=== PATIENT | female | born 1960 | race Caucasian/White ===

== ENCOUNTER 2017-07-31 10:30 | Outpatient (RCR) | payer OTHER, SELFPAY ==
--- NOTE | 2017-04-24 15:28 | HP.PTEVAL_ITS ---
Patient's Visit Information LUI REN is a 56 year old F referred to Physical Therapy by DO PEGGY Salcedo with a diagnosis of . Date of Evaluation: 04/24/17 Physical Therapist: Malik Lee - Visit Plan Frequency: 2-3x /Week Duration: 2 Months Plan: Continue with hip ROM, LE strengthening, and balance exercises. Progress gait to no assistive device. Follow protocol in chart for pincer surgery. - Subjective Subjective: Pt. states that she has been having right hip pain for about a year in a half with no specific injury that she can remember. Pt. PLOF includes no right hip pain in the past before this. Pt. denies any back pain. Pt. had x-ray and MRI which showed the pincer lesion. Pt. had right hip arthroscopic surgery for pincer resection on 04/08/17. Pt. is currently ambulating with single crutch and is WBAT. Pt. denies any numbness or tingling in her right leg. Pt. has difficulty with walking, standing long periods of time, sitting longer than 30 minutes, ascending/descending stairs, squatting, kneeling, sleeping on right side, driving, playing volleyball, walking on uneven ground, housework, yard work, and work. Pt. works at the [employer] in the kitchen. Pt. goal with physical therapy is to be able to play volleyball again. Pt. has had previous physical therapy prior to surgery which did not help. Pt. rates right hip pain at 5/10 currently, at worst 7/10, at best 2/10 and describes the pain as dull to throbbing. Pt. is currently taking Tramadol for pain. Pt. PMH includes smokes about 5 cigarettes a day for 30 years, left ankle surgery, tubes tied. Pt. lives with her in a one story house with basement and one step to enter with no handrail. Pt. hobbies include playing volleyball and gardening. - Objective Posture- Good standing posture. Palpation- Mild tenderness on outside of right hip. Incision- Two incisions on lateral right hip. Lumbar AROM- WNL for all motions. Right knee AROM flexion 138, extension 0. Left knee AROM flexion 135 , extension 0. PROM right and left hip- WNL bilaterally. AROM right hip flexion 110, abduction 24, adduction 30, ext- NT. Right hip strength flexion 4+ /5, abduction 4+/5, adduction 4+/5, extension- NT, knee flexion 5/5, knee extension 5/5, ankle DF 5/5, PF 5/5. Left hip strength flexion 5/5, abduction 5 /5, adduction 5/5, extension 5/5, knee flexion 5/5, knee extension 5/5, ankle DF 5/5, PF 5/5. Sensation- WNL bilaterally. Tandem stance on right 30 secs, left 30 secs. SLS on right 30 secs, left 30 secs. Gait- Pt. ambulates with single crutch and slight lateral shift to left. Stairs- Pt. ascends/descends stairs with step to gait pattern and unilateral handrail. - Goals Goal 1:: Pt. will be independent with home exercise program. Goal Time Frame: 2 Weeks Goal 2:: Pt. will be able to ambulate with no assistive device or gait deviations. Goal Time Frame: 2 Weeks Goal 3:: Pt. will improve right LE strength to 5/5 for all motions in order to be able to return to work. Goal Time Frame: 6-8 Weeks Goal 4:: Pt. will be able to ascend/descend stairs with alternating step pattern and no handrail. Goal Time Frame: 6-8 Weeks Goal 5:: Pt. will be able to stand/walk for at least 2 hours with no right hip pain. Goal Time Frame: 6-8 Weeks Goal 6:: Pt. will improve LEFS > 40/80 in order to improve mobility and ADL's. Goal Time Frame: 6-8 Weeks - Rehabilitation Potential Rehabilitation Potential: Excellent - Anticipated Interventions Thank you for the opportunity to evaluate your patient. For Medicare and Medicare HMO plans, please review the plan of care and approve it. It will need to be FAXED BACK to us at [phone] for Medicare purposes. Please let me know if there are questions or concerns regarding this plan of care. Physician Signature: Date:
--- NOTE | 2017-04-24 18:13 | HP.PTEVAL ---
Patient's Visit Information LUI REN is a 56 year old F referred to Physical Therapy by DO PEGGY Salcedo with a diagnosis of . Date of Evaluation: 04/24/17 Physical Therapist: Malik Lee - Visit Plan Frequency: 2-3x /Week Duration: 2 Months Plan: Continue with hip ROM, LE strengthening, and balance exercises. Progress gait to no assistive device. Follow protocol in chart for pincer surgery. - Subjective Subjective: Pt. states that she has been having right hip pain for about a year in a half with no specific injury that she can remember. Pt. PLOF includes no right hip pain in the past before this. Pt. denies any back pain. Pt. had x-ray and MRI which showed the pincer lesion. Pt. had right hip arthroscopic surgery for pincer resection on 04/08/17. Pt. is currently ambulating with single crutch and is WBAT. Pt. denies any numbness or tingling in her right leg. Pt. has difficulty with walking, standing long periods of time, sitting longer than 30 minutes, ascending/descending stairs, squatting, kneeling, sleeping on right side, driving, playing volleyball, walking on uneven ground, housework, yard work, and work. Pt. works at the [employer] in the kitchen. Pt. goal with physical therapy is to be able to play volleyball again. Pt. has had previous physical therapy prior to surgery which did not help. Pt. rates right hip pain at 5/10 currently, at worst 7/10, at best 2/10 and describes the pain as dull to throbbing. Pt. is currently taking Tramadol for pain. Pt. PMH includes smokes about 5 cigarettes a day for 30 years, left ankle surgery, tubes tied. Pt. lives with her in a one story house with basement and one step to enter with no handrail. Pt. hobbies include playing volleyball and gardening. - Objective Posture- Good standing posture. Palpation- Mild tenderness on outside of right hip. Incision- Two incisions on lateral right hip. Lumbar AROM- WNL for all motions. Right knee AROM flexion 138, extension 0. Left knee AROM flexion 135, extension 0. PROM right and left hip- WNL bilaterally. AROM right hip flexion 110, abduction 24, adduction 30, ext- NT. Right hip strength flexion 4+/5, abduction 4+/5, adduction 4+/5, extension- NT, knee flexion 5/5, knee extension 5/5, ankle DF 5/5, PF 5/5. Left hip strength flexion 5/5, abduction 5/5, adduction 5/5, extension 5/5, knee flexion 5/5, knee extension 5/5, ankle DF 5/5, PF 5/5. Sensation- WNL bilaterally. Tandem stance on right 30 secs, left 30 secs. SLS on right 30 secs, left 30 secs. Gait- Pt. ambulates with single crutch and slight lateral shift to left. Stairs- Pt. ascends/descends stairs with step to gait pattern and unilateral handrail. - Goals Goal 1:: Pt. will be independent with home exercise program. Goal Time Frame: 2 Weeks Goal 2:: Pt. will be able to ambulate with no assistive device or gait deviations. Goal Time Frame: 2 Weeks Goal 3:: Pt. will improve right LE strength to 5/5 for all motions in order to be able to return to work. Goal Time Frame: 6-8 Weeks Goal 4:: Pt. will be able to ascend/descend stairs with alternating step pattern and no handrail. Goal Time Frame: 6-8 Weeks Goal 5:: Pt. will be able to stand/walk for at least 2 hours with no right hip pain. Goal Time Frame: 6-8 Weeks Goal 6:: Pt. will improve LEFS > 40/80 in order to improve mobility and ADL's. Goal Time Frame: 6-8 Weeks - Rehabilitation Potential Physical Therapy Diagnosis: Pt. is a 56 y.o. female post right hip pincer resection surgery. Pt. is currently ambulating with single crutch. Pt. impairments include pain, decreased ROM, and strength. Pt. functional limitations include difficulty with standing, sitting, ascending/descending stairs, squatting, sleeping, housework, and work activity. Pt. was educated on diagnosis, prognosis, and home exercise program. Pt. will benefit from skilled physical therapy to address goals for therapy and improve mobility. Rehabilitation Potential: Excellent - Anticipated Interventions Thank you for the opportunity to evaluate your patient. For Medicare and Medicare HMO plans, please review the plan of care and approve it. It will need to be FAXED BACK to us at [phone] for Medicare purposes. Please let me know if there are questions or concerns regarding this plan of care. Physician Signature: Date:
--- NOTE | 2017-04-24 18:17 | HP.PTEVAL_ITS ---
Patient's Visit Information LUI REN is a 56 year old F referred to Physical Therapy by DO PEGGY Salcedo with a diagnosis of . Date of Evaluation: 04/24/17 Physical Therapist: Malik Lee - Visit Plan Frequency: 2-3x /Week Duration: 2 Months Plan: Continue with hip ROM, LE strengthening, and balance exercises. Progress gait to no assistive device. Follow protocol in chart for pincer surgery. - Subjective Subjective: Pt. states that she has been having right hip pain for about a year in a half with no specific injury that she can remember. Pt. PLOF includes no right hip pain in the past before this. Pt. denies any back pain. Pt. had x-ray and MRI which showed the pincer lesion. Pt. had right hip arthroscopic surgery for pincer resection on 04/08/17. Pt. is currently ambulating with single crutch and is WBAT. Pt. denies any numbness or tingling in her right leg. Pt. has difficulty with walking, standing long periods of time, sitting longer than 30 minutes, ascending/descending stairs, squatting, kneeling, sleeping on right side, driving, playing volleyball, walking on uneven ground, housework, yard work, and work. Pt. works at the [employer] in the kitchen. Pt. goal with physical therapy is to be able to play volleyball again. Pt. has had previous physical therapy prior to surgery which did not help. Pt. rates right hip pain at 5/10 currently, at worst 7/10, at best 2/10 and describes the pain as dull to throbbing. Pt. is currently taking Tramadol for pain. Pt. PMH includes smokes about 5 cigarettes a day for 30 years, left ankle surgery, tubes tied. Pt. lives with her in a one story house with basement and one step to enter with no handrail. Pt. hobbies include playing volleyball and gardening. - Objective Posture- Good standing posture. Palpation- Mild tenderness on outside of right hip. Incision- Two incisions on lateral right hip. Lumbar AROM- WNL for all motions. Right knee AROM flexion 138, extension 0. Left knee AROM flexion 135 , extension 0. PROM right and left hip- WNL bilaterally. AROM right hip flexion 110, abduction 24, adduction 30, ext- NT. Right hip strength flexion 4+ /5, abduction 4+/5, adduction 4+/5, extension- NT, knee flexion 5/5, knee extension 5/5, ankle DF 5/5, PF 5/5. Left hip strength flexion 5/5, abduction 5 /5, adduction 5/5, extension 5/5, knee flexion 5/5, knee extension 5/5, ankle DF 5/5, PF 5/5. Sensation- WNL bilaterally. Tandem stance on right 30 secs, left 30 secs. SLS on right 30 secs, left 30 secs. Gait- Pt. ambulates with single crutch and slight lateral shift to left. Stairs- Pt. ascends/descends stairs with step to gait pattern and unilateral handrail. - Goals Goal 1:: Pt. will be independent with home exercise program. Goal Time Frame: 2 Weeks Goal 2:: Pt. will be able to ambulate with no assistive device or gait deviations. Goal Time Frame: 2 Weeks Goal 3:: Pt. will improve right LE strength to 5/5 for all motions in order to be able to return to work. Goal Time Frame: 6-8 Weeks Goal 4:: Pt. will be able to ascend/descend stairs with alternating step pattern and no handrail. Goal Time Frame: 6-8 Weeks Goal 5:: Pt. will be able to stand/walk for at least 2 hours with no right hip pain. Goal Time Frame: 6-8 Weeks Goal 6:: Pt. will improve LEFS > 40/80 in order to improve mobility and ADL's. Goal Time Frame: 6-8 Weeks - Rehabilitation Potential Physical Therapy Diagnosis: Pt. is a 56 y.o. female post right hip pincer resection surgery. Pt. is currently ambulating with single crutch. Pt. impairments include pain, decreased ROM, and strength. Pt. functional limitations include difficulty with standing, sitting, ascending/descending stairs, squatting, sleeping, housework, and work activity. Pt. was educated on diagnosis, prognosis, and home exercise program. Pt. will benefit from skilled physical therapy to address goals for therapy and improve mobility. Rehabilitation Potential: Excellent - Anticipated Interventions Thank you for the opportunity to evaluate your patient. For Medicare and Medicare HMO plans, please review the plan of care and approve it. It will need to be FAXED BACK to us at [phone] for Medicare purposes. Please let me know if there are questions or concerns regarding this plan of care. Physician Signature: Date:
--- NOTE | 2017-10-12 18:28 | HP.PT.NRP ---
HP - Discharge Summary (1) - Patient Information LUI REN was seen in my office for initial evaluation on 04/24/17. The following Plan of Care was established for this patient: Initial Frequency: 2-3x /Week Initial Duration: 2 Months This patient was last seen in our office 07/31/17. Pertinent comments regarding their Physical therapy will appear below: Pt. was seen for S/P R hip labral repair. Pt. was progressing as expected. She did have occassional stiffness with ambulation and recreational activities. Pt. was to continue with iliopsoas stretching for HEP. Pt. was to follow up with PT if needed. Pt. has yet to follow and will be DC from PT at this point in time. At this point I will be discontinuing this patient from physical therapy. I would be happy to see this patient again in the future if found appropriate by the physician. Thank you! Fredo Busby
== END 2017-07-31 19:00 | disposition home or self-care (01) ==
LOC: PT 10:30
PROVIDERS: Family Provider Internal Medicine; PCP Internal Medicine; Visit Provider Orthopaedic Surgery
DX: Z98.890 Other specified postprocedural states (principal)
CPT/HCPCS: 97014; 97110; 97116; 97161; G0283

== ENCOUNTER → 2017-09-29 09:49 | Outpatient (CLI) | payer OTHER, SELFPAY ==
--- NOTE | 2017-09-29 09:51 | RAD_ITS ---
STUDY: X-RAY - PELVIS AND RIGHT HIP REASON FOR EXAM: Female, 57 years old. Right hip pain TECHNIQUE: Radiological exam, hip, unilateral, with pelvis when performed; 2 or 3 views. COMPARISON: None. FINDINGS: There is a non-specific bowel gas pattern. Normal visualized soft tissue structures. Normal bilateral iliac wings, sacroiliac joints and visualized sacrum. Normal bilateral superior and inferior pubic rami. Normal pubic symphysis. Normal bilateral ischial tuberosities. Normal visualized femoral head. Normal acetabulum. Normal hip joint. RAD/Hip 2-3 Views with Pelvis IMPRESSION: Normal x-ray examination of the pelvis and hip. Electronically Signed: Paul Carrero MD at 23:50 EDT , Service support ,
== END ==
PROVIDERS: Family Provider Internal Medicine; PCP Internal Medicine; Visit Provider Orthopaedic Surgery
DX: M25.551 Pain in right hip (principal)
CPT/HCPCS: 73502